=== PATIENT | female | born 1955 | race Two or more races ===

== ENCOUNTER 2018-11-09 22:41 | Emergency (ER) | payer SELFPAY ==
[~2018-11-09] VITALS: Ht 160 cm; Wt 104.3 kg
[2018-11-10 00:19] LABS: BASO # 0.1 x10^3/uL (0.0-0.2); BASO % 1 % (0-3); EOS # 0.4 x10^3/uL (0.0-0.7); EOS % 4 % (0-3); HEMATOCRIT 36.6 % (36.0-47.0); HEMOGLOBIN 12.6 g/dL (12.0-15.5); LYMPH # 3.1 x10^3/uL (1.0-4.8); LYMPH % 34 % (24-48); MEAN CORPUSCULAR HEMOGLOBIN 32 pg (25-35); MEAN CORPUSCULAR HGB CONC 34 g/dL (31-37); MEAN CORPUSCULAR VOLUME 93 fL (79-100); MONO # 0.8 x10^3/uL (0.0-1.1); MONO % 8 % (0-9); NEUT # 4.9 x10^3uL (1.8-7.7); NEUT % 53 % (31-73); PLATELET COUNT 241 x10^3/uL (140-400); RED BLOOD COUNT 3.93 x10^6/uL (3.50-5.40); RED CELL DISTRIBUTION WIDTH 12.9 % (11.5-14.5); WHITE BLOOD COUNT 9.2 x10^3/uL (4.0-11.0)
[2018-11-10 00:20] LABS: BILIRUBIN,URINE NEGATIVE (NEG); CLARITY,URINE CLEAR; COLOR,URINE YELLOW; NITRITE,URINE NEGATIVE (NEG); PH,URINE 7.5; PROTEIN,URINE NEGATIVE (NEG-TRACE); UROBILINOGEN,URINE 0.2 mg/dL (0.2 mg/dL)
[2018-11-10 00:29] LABS: BACTERIA,URINE 0 /HPF (0-FEW); RBC,URINE OCC /HPF (0-2); SQUAMOUS EPITHELIAL CELL,UR FEW /LPF; WBC,URINE OCC /HPF (0-4)
[2018-11-10 00:29] LABS: CALCIUM 9.1 mg/dL (8.5-10.1); POTASSIUM 3.4 mmol/L (3.5-5.1)
[2018-11-10] MEDS ORDERED: ONDANSETRON PF 4 MG/2 ML VIAL. IV ONE (00:30)
[2018-11-10] MEDS ORDERED: FAMOTIDINE 20 MG/2 ML VIAL IVP ONE (00:30)
[2018-11-10] MEDS ORDERED: IV NORMAL SALINE 1000ML BAG 1,000 ML IV ONE (00:30)
[2018-11-10] MEDS ORDERED: IOHEXOL 300 MG/ML 100ML VIAL. IV ONE (00:30)
[2018-11-10 00:33] LABS: PROTHROMBIN TIME PATIENT 13.6 SEC (11.7-14.0)
[2018-11-10 00:35] LABS: ALBUMIN 3.6 g/dL (3.4-5.0); TOTAL BILIRUBIN 0.3 mg/dL (0.2-1.0); TOTAL PROTEIN 7.3 g/dL (6.4-8.2)
[2018-11-10] MEDS ORDERED: CONTRAST GIVEN. MC PRN (00:45)
--- NOTE | 2018-11-10 01:10 | RAD ---
PQRS Compliance Statement: One or more of the following individualized dose reduction techniques were utilized for this examination: 1. Automated exposure control 2. Adjustment of the mA and/or kV according to patient size 3. Use of iterative reconstruction technique CT ABD PELV W/ IV CONTRST ONLY Clinical Indication: ABD PAIN; Comparison: CT abdomen and pelvis without contrast April or 10/02/2012. Technique: Helical CT imaging of the abdomen and pelvis is performed after 60 cc of Omnipaque 300 IV contrast. Oral contrast not given. Findings: Mild dependent atelectasis in the lung bases. Cardiac size normal. The liver, gallbladder, spleen, pancreas, adrenal glands, abdominal aorta, and kidneys are normal. Stomach not well distended accentuating wall thickness. No dilated small bowel. The appendix is normal. Scattered stool in the colon. No colon wall thickening. No abdominal adenopathy or free fluid. Urinary bladder is normal. Hysterectomy. No pelvic free fluid. Mild grade 1 anterolisthesis of L4 on L5. IMPRESSION: No acute abdominal or pelvic abnormality. Electronically signed by: Prateek Wong MD (11/10/2018 1:06 AM) [facility]
[2018-11-10] MEDS ORDERED: ONDA4TAB12 PO (01:19)
[2018-11-10] MEDS ORDERED: FAMO-63 PO (01:19)
[2018-11-10] MEDS ORDERED: HYOS0.1265 SL (01:19)
--- NOTE | 2018-11-10 01:20 | PHYS DOC ---
Past Medical History Past Medical History: No Pertinent History Alcohol Use: Occasionally Drug Use: None Adult General Chief Complaint Chief Complaint: ABDOMINAL PAIN HPI HPI Patient is a 63 year old [f__sex] who presents with [] Review of Systems Review of Systems Constitutional: Denies fever or chills [] Eyes: Denies change in visual acuity, redness, or eye pain [] HENT: Denies nasal congestion or sore throat [] Respiratory: Denies cough or shortness of breath [] Cardiovascular: No additional information not addressed in HPI [] GI: Denies abdominal pain, nausea, vomiting, bloody stools or diarrhea [] : Denies dysuria or hematuria [] Musculoskeletal: Denies back pain or joint pain [] Integument: Denies rash or skin lesions [] Neurologic: Denies headache, focal weakness or sensory changes [] Endocrine: Denies polyuria or polydipsia [] All other systems were reviewed and found to be within normal limits, except as documented in this note. Current Medications Current Medications Current Medications Medications (Trade) Dose Ordered Sig/Win Start Time Stop Time Status Last Admin Dose Admin Famotidine (Pepcid Vial) 20 mg 1X ONCE 11/10/18 00:30 11/10/18 00:31 DC 11/10/18 00:26 20 MG Info (CONTRAST GIVEN -- Rx MONITORING) 1 each PRN DAILY PRN 11/10/18 00:45 18 00:44 Iohexol (Omnipaque 300 Mg/ml) 75 ml 1X ONCE 11/10/18 00:30 11/10/18 00:31 DC 11/10/18 00:57 60 ML Ondansetron HCl (Zofran) 4 mg 1X ONCE 11/10/18 00:30 11/10/18 00:31 DC 11/10/18 00:25 4 MG Sodium Chloride 1,000 ml @ 1,000 mls/hr 1X ONCE 11/10/18 00:30 11/10/18 01:29 11/10/18 00:26 1,000 MLS/HR Allergies Allergies Allergies Coded Allergies Type Severity Reaction Last Updated Verified No Known Drug Allergies 11/09/18 No Physical Exam Physical Exam Constitutional: Well developed, well nourished, no acute distress, non-toxic appearance. [] HENT: Normocephalic, atraumatic, bilateral external ears normal, oropharynx moist, no oral exudates, nose normal. [] Eyes: PERRLA, EOMI, conjunctiva normal, no discharge. [] Neck: Normal range of motion, no tenderness, supple, no stridor. [] Cardiovascular:Heart rate regular rhythm, no murmur [] Lungs & Thorax: Bilateral breath sounds clear to auscultation [] Abdomen: Bowel sounds normal, soft, no tenderness, no masses, no pulsatile masses. [] Skin: Warm, dry, no erythema, no rash. [] Back: No tenderness, no CVA tenderness. [] Extremities: No tenderness, no cyanosis, no clubbing, ROM intact, no edema. [] Neurologic: Alert and oriented X 3, normal motor function, normal sensory function, no focal deficits noted. [] Psychologic: Affect normal, judgement normal, mood normal. [] Current Patient Data Vital Signs Vital Signs Date Time Temp Pulse Resp B/P (MAP) Pulse Ox O2 Delivery O2 Flow Rate FiO2 11/09/18 23:28 98.0 66 18 174/81 (112) 96 Room Air 98.0 Lab Values Laboratory Tests Test 11/09/18 23:18 11/09/18 23:36 11/10/18 00:16 Urine Collection Type Unknown Urine Color Yellow Urine Clarity Clear Urine pH 7.5 Urine Specific [place] 1.015 Urine Protein Negative mg/dL (NEG-TRACE) Urine Glucose (UA) Negative mg/dL (NEG) Urine Ketones (Stick) Negative mg/dL (NEG) Urine Blood Negative (NEG) Urine Nitrite Negative (NEG) Urine Bilirubin Negative (NEG) Urine Urobilinogen Dipstick 0.2 mg/dL (0.2 mg/dL) Urine Leukocyte Esterase Negative (NEG) Urine RBC Occ /HPF (0-2) Urine WBC Occ /HPF (0-4) Urine Squamous Epithelial Cells Few /LPF Urine Bacteria 0 /HPF (0-FEW) Urine Mucus Slight /LPF White Blood Count 9.2 x10^3/uL (4.0-11.0) Red Blood Count 3.93 x10^6/uL (3.50-5.40) Hemoglobin 12.6 g/dL (12.0-15.5) Hematocrit 36.6 % (36.0-47.0) Mean Corpuscular Volume 93 fL (79-100) Mean Corpuscular Hemoglobin 32 pg (25-35) Mean Corpuscular Hemoglobin Concent 34 g/dL (31-37) Red Cell Distribution Width 12.9 % (11.5-14.5) Platelet Count 241 x10^3/uL (140-400) Neutrophils (%) (Auto) 53 % (31-73) Lymphocytes (%) (Auto) 34 % (24-48) Monocytes (%) (Auto) 8 % (0-9) Eosinophils (%) (Auto) 4 % (0-3) H Basophils (%) (Auto) 1 % (0-3) Neutrophils # (Auto) 4.9 x10^3uL (1.8-7.7) Lymphocytes # (Auto) 3.1 x10^3/uL (1.0-4.8) Monocytes # (Auto) 0.8 x10^3/uL (0.0-1.1) Eosinophils # (Auto) 0.4 x10^3/uL (0.0-0.7) Basophils # (Auto) 0.1 x10^3/uL (0.0-0.2) Prothrombin Time 13.6 SEC (11.7-14.0) Prothrombin Time INR 1.1 (0.8-1.1) PTT 29 SEC (24-38) Sodium Level 140 mmol/L (136-145) Potassium Level 3.4 mmol/L (3.5-5.1) L Chloride Level 105 mmol/L (98-107) Carbon Dioxide Level 26 mmol/L (21-32) Anion Gap 9 (6-14) Blood Urea Nitrogen 10 mg/dL (7-20) Creatinine 1.0 mg/dL (0.6-1.0) Estimated GFR (Cockcroft-Gault) 56.0 BUN/Creatinine Ratio 10 (6-20) Glucose Level 81 mg/dL (70-99) Calcium Level 9.1 mg/dL (8.5-10.1) Total Bilirubin 0.3 mg/dL (0.2-1.0) Aspartate Amino Transferase (AST) 24 U/L (15-37) Alanine Aminotransferase (ALT) 32 U/L (14-59) Alkaline Phosphatase 92 U/L (46-116) Creatine Kinase 146 U/L (26-192) Creatine Kinase MB (Mass) 1.3 ng/mL (0.0-3.6) Creatine Kinase MB Relative Index 0.9 % (0-4) Troponin I Quantitative < 0.017 ng/mL (0.000-0.055) Total Protein 7.3 g/dL (6.4-8.2) Albumin 3.6 g/dL (3.4-5.0) Albumin/Globulin Ratio 1.0 (1.0-1.7) Lipase 190 U/L (73-393) Lactic Acid Level 0.5 mmol/L (0.4-2.0) Laboratory Tests 11/09/18 23:36 Laboratory Tests 11/09/18 23:36 EKG EKG @0021 NSR at 62bpm, NO ST elevation Radiology/Procedures Radiology/Procedures PROCEDURE: CT ABD PELV W/ IV CONTRST ONLY PQRS Compliance Statement: One or more of the following individualized dose reduction techniques were utilized for this examination: 1. Automated exposure control 2. Adjustment of the mA and/or kV according to patient size 3. Use of iterative reconstruction technique CT ABD PELV W/ IV CONTRST ONLY Clinical Indication: ABD PAIN; Comparison: CT abdomen and pelvis without contrast April or 10/02/2012. Technique: Helical CT imaging of the abdomen and pelvis is performed after 60 cc of Omnipaque 300 IV contrast. Oral contrast not given. Findings: Mild dependent atelectasis in the lung bases. Cardiac size normal. The liver, gallbladder, spleen, pancreas, adrenal glands, abdominal aorta, and kidneys are normal. Stomach not well distended accentuating wall thickness. No dilated small bowel. The appendix is normal. Scattered stool in the colon. No colon wall thickening. No abdominal adenopathy or free fluid. Urinary bladder is normal. Hysterectomy. No pelvic free fluid. Mild grade 1 anterolisthesis of L4 on L5. IMPRESSION: No acute abdominal or pelvic abnormality. Electronically signed by: Prateek Wong MD (11/10/2018 1:06 AM) [facility] Course & Med Decision Making Course & Med Decision Making Pertinent Labs and Imaging studies reviewed. (See chart for details) [] Dragon Disclaimer Dragon Disclaimer This electronic medical record was generated, in whole or in part, using a voice recognition dictation system. Departure Departure Impression: Primary Impression: Abdominal pain Disposition: 01 HOME, SELF-CARE Referrals: JAY JONES MD (PCP) KAUR FIERRO MD Patient Instructions: Abdominal Pain (Nonspecific) Scripts Famotidine (PEPCID) 20 Mg Tablet 20 MG PO BID, #20 TAB Prov: SP ALVA DO 11/10/18 Ondansetron (ONDANSETRON ODT) 4 Mg Tab.rapdis 1 TAB PO PRN Q6-8HRS for VOMITING, #16 TAB Prov: SP ALVA DO 11/10/18 Hyoscyamine Sulfate (LEVSIN-SL) 0.125 Mg Tab.subl 1-2 TAB SL PRN Q4HRS PRN for PAIN, #20 TAB 0 Refills Prov: SP ALVA DO 11/10/18 Problem Qualifiers Primary Impression: Abdominal pain Abdominal location: generalized Qualified Codes: R10.84 - Generalized abdominal pain SP ALVA DO Nov 10, 2018 01:20
[2018-11-10 01:30] VITALS: BP 149/65
[2018-11-10] MEDS ORDERED: fentaNYL PF VIAL 100 MCG/2 ML VIAL IV ONE (01:30)
[2018-11-10] MEDS ORDERED: IOHEXOL 300 MG/ML 100ML VIAL. ONE (06:21)
--- NOTE | 2018-11-10 07:02 | EKG ---
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
== END 2018-11-10 01:48 | disposition home or self-care (01) ==
LOC: ER 22:41
DX: R10.84 Generalized abdominal pain (principal); J98.11 Atelectasis; Z90.710 Acquired absence of both cervix and uterus
CPT/HCPCS: 36415; 74177; 80053; 81001; 82553; 83605; 83690; 84484; 85025; 85610; 85730; 93005; 96374; 96375; 99284; J2405; J3010; J3490; J7030; Q9967

== ENCOUNTER 2019-03-31 21:09 | Emergency (ER) | payer SELFPAY ==
[~2019-03-31] VITALS: Ht 162.6 cm; Wt 88.0 kg
[~2019-03-31 21:09] MED LIST: FAMO-63 PO; HYOS0.1265 SL; ONDA4TAB12 PO
[2019-03-31 21:51] LABS: BILIRUBIN,URINE NEGATIVE (NEG); CLARITY,URINE CLEAR; COLOR,URINE YELLOW; NITRITE,URINE NEGATIVE (NEG); PH,URINE 6.5; PROTEIN,URINE NEGATIVE (NEG-TRACE); UROBILINOGEN,URINE 0.2 mg/dL (0.2 mg/dL)
[2019-03-31 21:57] LABS: BACTERIA,URINE 0 /HPF (0-FEW); SQUAMOUS EPITHELIAL CELL,UR FEW /LPF
[2019-03-31 22:00] LABS: BASO # 0.1 x10^3/uL (0.0-0.2); BASO % 1 % (0-3); EOS # 0.3 x10^3/uL (0.0-0.7); EOS % 2 % (0-3); HEMATOCRIT 39.9 % (36.0-47.0); HEMOGLOBIN 13.3 g/dL (12.0-15.5); LYMPH # 2.2 x10^3/uL (1.0-4.8); LYMPH % 19 % (24-48); MEAN CORPUSCULAR HEMOGLOBIN 31 pg (25-35); MEAN CORPUSCULAR HGB CONC 33 g/dL (31-37); MEAN CORPUSCULAR VOLUME 93 fL (79-100); MONO # 0.9 x10^3/uL (0.0-1.1); MONO % 8 % (0-9); NEUT # 7.9 x10^3uL (1.8-7.7); NEUT % 70 % (31-73); PLATELET COUNT 268 x10^3/uL (140-400); RED CELL DISTRIBUTION WIDTH 13.5 % (11.5-14.5); WHITE BLOOD COUNT 11.3 x10^3/uL (4.0-11.0)
[2019-03-31] MEDS ORDERED: FAMOTIDINE 20 MG/2 ML VIAL IVP ONE (22:00)
[2019-03-31] MEDS ORDERED: IV NORMAL SALINE 1000ML BAG 1,000 ML IV ONE (22:00)
[2019-03-31] MEDS ORDERED: ONDANSETRON PF 4 MG/2 ML VIAL. IV ONE (22:00)
[2019-03-31] MEDS ORDERED: fentaNYL PF VIAL 100 MCG/2 ML VIAL IV ONE (22:00)
[2019-03-31 22:10] LABS: PROTHROMBIN TIME PATIENT 12.5 SEC (11.7-14.0)
[2019-03-31 22:11] LABS: CALCIUM 9.7 mg/dL (8.5-10.1); CREATININE 1.1 mg/dL (0.6-1.0); GFR 50.2; POTASSIUM 3.6 mmol/L (3.5-5.1)
[2019-03-31 22:16] LABS: ALBUMIN 3.8 g/dL (3.4-5.0); ALBUMIN/GLOBULIN RATIO 1.1 (1.0-1.7); MAGNESIUM 2.2 mg/dL (1.8-2.4); TOTAL BILIRUBIN 0.2 mg/dL (0.2-1.0); TOTAL PROTEIN 7.4 g/dL (6.4-8.2)
[2019-03-31] MEDS ORDERED: CONTRAST GIVEN. MC PRN (22:30)
[2019-03-31 22:45] VITALS: BP 152/70
--- NOTE | 2019-03-31 22:52 | PHYS DOC ---
Past Medical History Past Medical History: No Pertinent History Past Surgical History: , Tonsillectomy Additional Information: 10 ciggerttes per day Alcohol Use: Rarely Drug Use: None Adult General Chief Complaint Chief Complaint: GI PROBLEM HPI HPI Patient is a 63 year old [f__sex] who presents with [] Review of Systems Review of Systems Constitutional: Denies fever or chills [] Eyes: Denies change in visual acuity, redness, or eye pain [] HENT: Denies nasal congestion or sore throat [] Respiratory: Denies cough or shortness of breath [] Cardiovascular: No additional information not addressed in HPI [] GI: Denies abdominal pain, nausea, vomiting, bloody stools or diarrhea [] : Denies dysuria or hematuria [] Musculoskeletal: Denies back pain or joint pain [] Integument: Denies rash or skin lesions [] Neurologic: Denies headache, focal weakness or sensory changes [] Endocrine: Denies polyuria or polydipsia [] All other systems were reviewed and found to be within normal limits, except as documented in this note. Current Medications Current Medications Current Medications Medications (Trade) Dose Ordered Sig/Win Start Time Stop Time Status Last Admin Dose Admin Famotidine (Pepcid Vial) 20 mg 1X ONCE 03/31/19 22:00 03/31/19 22:01 DC 03/31/19 22:06 20 MG Fentanyl Citrate (Fentanyl 2ml Vial) 50 mcg 1X ONCE 03/31/19 22:00 03/31/19 22:01 DC 03/31/19 22:07 50 MCG Info (CONTRAST GIVEN -- Rx MONITORING) 1 each PRN DAILY PRN 03/31/19 22:30 04/02/19 22:29 Iohexol (Omnipaque 300 Mg/ml) 60 ml 1X ONCE 03/31/19 23:00 03/31/19 23:01 DC 03/31/19 22:31 60 ML Ondansetron HCl (Zofran) 4 mg 1X ONCE 03/31/19 22:00 03/31/19 22:01 DC 03/31/19 22:06 4 MG Sodium Chloride 1,000 ml @ 1,000 mls/hr 1X ONCE 03/31/19 22:00 03/31/19 22:59 DC 03/31/19 22:05 1,000 MLS/HR Allergies Allergies Allergies Coded Allergies Type Severity Reaction Last Updated Verified No Known Drug Allergies 11/09/18 No Physical Exam Physical Exam Constitutional: Well developed, well nourished, no acute distress, non-toxic appearance. [] HENT: Normocephalic, atraumatic, bilateral external ears normal, oropharynx moist, no oral exudates, nose normal. [] Eyes: PERRLA, EOMI, conjunctiva normal, no discharge. [] Neck: Normal range of motion, no tenderness, supple, no stridor. [] Cardiovascular:Heart rate regular rhythm, no murmur [] Lungs & Thorax: Bilateral breath sounds clear to auscultation [] Abdomen: Bowel sounds normal, soft, no tenderness, no masses, no pulsatile masses. [] Skin: Warm, dry, no erythema, no rash. [] Back: No tenderness, no CVA tenderness. [] Extremities: No tenderness, no cyanosis, no clubbing, ROM intact, no edema. [] Neurologic: Alert and oriented X 3, normal motor function, normal sensory function, no focal deficits noted. [] Psychologic: Affect normal, judgement normal, mood normal. [] Current Patient Data Vital Signs Vital Signs Date Time Temp Pulse Resp B/P (MAP) Pulse Ox O2 Delivery O2 Flow Rate FiO2 03/31/19 22:07 22 93 Room Air 03/31/19 21: 98.7 79 142/65 (90) 98.7 Lab Values Laboratory Tests Test 03/31/19 21:10 03/31/19 21:50 Urine Collection Type Unknown Urine Color Yellow Urine Clarity Clear Urine pH 6.5 Urine Specific [place] 1.025 Urine Protein Negative mg/dL (NEG-TRACE) Urine Glucose (UA) Negative mg/dL (NEG) Urine Ketones (Stick) Negative mg/dL (NEG) Urine Blood Small (NEG) Urine Nitrite Negative (NEG) Urine Bilirubin Negative (NEG) Urine Urobilinogen Dipstick 0.2 mg/dL (0.2 mg/dL) Urine Leukocyte Esterase Small (NEG) Urine RBC 1-2 /HPF (0-2) Urine WBC 1-4 /HPF (0-4) Urine Squamous Epithelial Cells Few /LPF Urine Bacteria 0 /HPF (0-FEW) Urine Mucus Slight /LPF White Blood Count 11.3 x10^3/uL (4.0-11.0) H Red Blood Count 4.30 x10^6/uL (3.50-5.40) Hemoglobin 13.3 g/dL (12.0-15.5) Hematocrit 39.9 % (36.0-47.0) Mean Corpuscular Volume 93 fL (79-100) Mean Corpuscular Hemoglobin 31 pg (25-35) Mean Corpuscular Hemoglobin Concent 33 g/dL (31-37) Red Cell Distribution Width 13.5 % (11.5-14.5) Platelet Count 268 x10^3/uL (140-400) Neutrophils (%) (Auto) 70 % (31-73) Lymphocytes (%) (Auto) 19 % (24-48) L Monocytes (%) (Auto) 8 % (0-9) Eosinophils (%) (Auto) 2 % (0-3) Basophils (%) (Auto) 1 % (0-3) Neutrophils # (Auto) 7.9 x10^3uL (1.8-7.7) H Lymphocytes # (Auto) 2.2 x10^3/uL (1.0-4.8) Monocytes # (Auto) 0.9 x10^3/uL (0.0-1.1) Eosinophils # (Auto) 0.3 x10^3/uL (0.0-0.7) Basophils # (Auto) 0.1 x10^3/uL (0.0-0.2) Prothrombin Time 12.5 SEC (11.7-14.0) Prothrombin Time INR 1.0 (0.8-1.1) PTT 28 SEC (24-38) Sodium Level 140 mmol/L (136-145) Potassium Level 3.6 mmol/L (3.5-5.1) Chloride Level 100 mmol/L (98-107) Carbon Dioxide Level 30 mmol/L (21-32) Anion Gap 10 (6-14) Blood Urea Nitrogen 17 mg/dL (7-20) Creatinine 1.1 mg/dL (0.6-1.0) H Estimated GFR (Cockcroft-Gault) 50.2 BUN/Creatinine Ratio 15 (6-20) Glucose Level 121 mg/dL (70-99) H Lactic Acid Level 1.3 mmol/L (0.4-2.0) Calcium Level 9.7 mg/dL (8.5-10.1) Magnesium Level 2.2 mg/dL (1.8-2.4) Total Bilirubin 0.2 mg/dL (0.2-1.0) Aspartate Amino Transferase (AST) 15 U/L (15-37) Alanine Aminotransferase (ALT) 24 U/L (14-59) Alkaline Phosphatase 100 U/L (46-116) Troponin I Quantitative < 0.017 ng/mL (0.000-0.055) Total Protein 7.4 g/dL (6.4-8.2) Albumin 3.8 g/dL (3.4-5.0) Albumin/Globulin Ratio 1.1 (1.0-1.7) Lipase 167 U/L (73-393) Laboratory Tests 03/31/19 21:50 Laboratory Tests 03/31/19 21:50 EKG EKG @2148 NSR at 72bpm, baseline artifact noted, V2 with significant wandering artifact, NO ST elevation Radiology/Procedures Radiology/Procedures PROCEDURE: CT CHEST ABD PELVIS W/CONTRAST EXAM: Chest, abdomen and pelvis CT with intravenous contrast. HISTORY: Epigastric pain. TECHNIQUE: Computed tomographic images of the chest, abdomen and pelvis were obtained following the administration of 60 cc Omnipaque 300 intravenous contrast. Multiplanar reformatting was performed. *One or more of the following individualized dose reduction techniques were utilized for this examination: 1. Automated exposure control. 2. Adjustment of the mA and/or kV according to patient size. 3. Use of iterative reconstruction technique. COMPARISON: 12/15/2011. FINDINGS: Chest: The heart is normal in size. The aorta is normal in caliber. There is a standard aortic arch branching pattern. There are nonspecific mediastinal and hilar lymph nodes. These are not pathologically enlarged. There is no pneumothorax or pleural effusion. There is posterior dependent and basilar atelectasis. There is no consolidation. There is no suspicious pulmonary nodule. There is no suspicious osseous lesion. Abdomen and pelvis: No hepatic lesion is seen. The gallbladder, pancreas, adrenal glands and kidneys are unremarkable. The appendix is normal in appearance. No abnormally thickened or dilated loop of bowel seen. There is no retroperitoneal or mesenteric lymphadenopathy. There is mild pyloric wall thickening wall thickening. There is no suspicious osseous lesion. IMPRESSION: 1. Mild nonspecific pyloric wall thickening. 2. Otherwise, relatively unremarkable abdomen and pelvis and chest CT. Electronically signed by: Steffanie Powell MD (03/31/2019 10:47 PM) [facility] Course & Med Decision Making Course & Med Decision Making Pertinent Labs and Imaging studies reviewed. (See chart for details) [] Dragon Disclaimer Dragon Disclaimer This electronic medical record was generated, in whole or in part, using a voice recognition dictation system. Departure Departure Impression: Primary Impression: Abdominal pain Additional Impressions: Nausea vomiting and diarrhea Nausea & vomiting Disposition: 01 HOME, SELF-CARE Condition: STABLE Referrals: JAY JONES MD (PCP) Patient Instructions: Abdominal Pain (Nonspecific), Nausea and Vomiting, [id number] Scripts Hyoscyamine Sulfate (LEVSIN-SL) 0.125 Mg Tab.subl 1-2 TAB SL PRN Q4HRS PRN for PAIN, #30 TAB Prov: SP ALVA DO 03/31/19 Famotidine (PEPCID) 20 Mg Tablet 20 MG PO BID, #30 TAB Prov: SP ALVA DO 03/31/19 Ondansetron (ONDANSETRON ODT) 4 Mg Tab.rapdis 1 TAB PO PRN Q6-8HRS PRN for NAUSEA, #16 TAB Prov: SP ALVA DO 03/31/19 Problem Qualifiers Primary Impression: Abdominal pain Abdominal location: epigastric Qualified Codes: R10.13 - Epigastric pain Additional Impressions: Nausea & vomiting Vomiting type: unspecified Vomiting Intractability: non-intractable Qualified Codes: R11.2 - Nausea with vomiting, unspecified SP ALVA DO March 31, 2019 22:52
[2019-03-31] MEDS ORDERED: IOHEXOL 300 MG/ML 100ML VIAL. IV ONE (23:00)
[2019-03-31] MEDS ORDERED: FAMO-63 PO (23:09)
[2019-03-31] MEDS ORDERED: HYOS0.1265 SL (23:09)
[2019-03-31] MEDS ORDERED: ONDA4TAB12 PO (23:09)
--- NOTE | 2019-04-01 07:02 | EKG ---
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
== END 2019-03-31 23:15 | disposition home or self-care (01) ==
LOC: ER 21:09
DX: R10.13 Epigastric pain (principal); R11.2 Nausea with vomiting, unspecified; F17.210 Nicotine dependence, cigarettes, uncomplicated; Z98.890 Other specified postprocedural states; Z90.89 Acquired absence of other organs
CPT/HCPCS: 36415; 71260; 74177; 80053; 81001; 83605; 83690; 83735; 84484; 85025; 85610; 85730; 87086; 93005; 96361; 96374; 96375; 99285; J2405; J3010; J3490; J7030; Q9967

== ENCOUNTER 2019-10-03 07:23 | Emergency (ER) | payer SELFPAY ==
[~2019-10-03] VITALS: Ht 157.5 cm; Wt 86.2 kg
[2019-10-03 07:35] VITALS: BP 159/72
--- NOTE | 2019-10-03 07:47 | PHYS DOC ---
Past Medical History Past Medical History: No Pertinent History Past Surgical History: , Tonsillectomy Smoking: Cigarettes Alcohol Use: Rarely Drug Use: None Adult General Chief Complaint Chief Complaint: COUGH HPI HPI Patient is a 63-year-old female who presents to the emergency department for evaluation. She states for the past 10 days, she has had a cough productive of greenish sputum, as well as a sore throat and nasal congestion. She has not had any fever or otalgia. She has not had any voice changes. Swallowing and coughing hurts her throat. There are no alleviating factors to her symptoms otherwise. She denies any chest pain or pleuritic pain. Review of Systems Review of Systems Constitutional: Denies fever or chills [] Eyes: Denies change in visual acuity, redness, or eye pain [] HENT: Reports nasal congestion and sore throat [] Respiratory: Denies pleuritic pain or shortness of breath . Reports cough.[] Cardiovascular: The patient denies any shortness of breath, chest pain, palpitations, or orthopnea [] GI: Denies abdominal pain, nausea, vomiting, bloody stools or diarrhea [] : Denies dysuria or hematuria [] Musculoskeletal: Denies back pain or joint pain [] Integument: Denies rash or skin lesions [] Neurologic: Denies headache, focal weakness or sensory changes [] Endocrine: Denies polyuria or polydipsia [] All other systems were reviewed and found to be within normal limits, except as documented in this note. Allergies Allergies Allergies Coded Allergies Type Severity Reaction Last Updated Verified No Known Drug Allergies 11/09/18 No Physical Exam Physical Exam PHYSICAL EXAM: CONSTITUTIONAL: Well developed, well nourished HEAD: normocephalic, atraumatic EENT: PERRL, EOMI. Conjunctivae normal color, sclerae non-icteric; moist mucous membranes. The oropharynx is mildly erythematous. There is no exudate or edema. The uvula is midline. NECK: Supple, no meningismus. There is mild soft tissue tenderness diffusely the anterior neck, without any definite submandibular lymphadenopathy. There is no stridor. Voice is normal. LUNGS: Lungs CTA, breathing even and unlabored. Normal air movement. HEART: Regular rate and rhythm, no murmur CHEST: No deformity; non-tender ABDOMEN: The abdomen is soft, and non-tender, no masses or bruits. EXTREM: Normal ROM; no deformity, no calf tenderness. Normal pulses palpable in all extremities. There is no pedal edema. SKIN: No rash; no diaphoresis NEURO: Alert; normal speech and cognition; CN's grossly intact; strength grossly intact without focal deficit. BACK: No CVA TTP. Current Patient Data Vital Signs Vital Signs Date Time Temp Pulse Resp B/P (MAP) Pulse Ox O2 Delivery O2 Flow Rate FiO2 10/03/19 07:35 98.0 80 18 159/72 (101) 96 Room Air 98.0 EKG EKG [] Radiology/Procedures Radiology/Procedures PROCEDURE: CHEST PA & LATERAL PA and lateral chest. HISTORY: Cough PA and lateral views were taken of the chest. Heart is normal in size. There is no pleural effusion. A confluent pneumonia is not identified. There is no effusion. IMPRESSION: 1. No confluent infiltrates. [] PROCEDURE: NECK SOFT TISSUE AP and lateral soft tissue neck. HISTORY: Neck pain AP and lateral soft tissue views were taken of the neck. The epiglottis is not enlarged. There is no retropharyngeal soft tissue swelling. There is mild degenerative spurring spurring in the cervical spine at C5-6 and C6-7. Heart is enlarged. IMPRESSION: 1. No abnormal soft tissue swelling noted in the neck. 2. Degenerative change in the cervical spine. Course & Med Decision Making Course & Med Decision Making Pertinent Labs and Imaging studies reviewed. (See chart for details) []8:50 AM:Patient remains stable. I discussed test results, the need for close follow-up, and return precautions. Dragon Disclaimer Dragon Disclaimer This electronic medical record was generated, in whole or in part, using a voice recognition dictation system. Departure Departure Impression: Primary Impression: Cough Additional Impression: Acute pharyngitis Disposition: 01 HOME, SELF-CARE Condition: STABLE Patient Instructions: Cough, Adult, Viral and Bacterial Pharyngitis Scripts Benzonatate (TESSALON PERLE) 100 Mg Capsule 200 MG PO TID PRN for COUGH, #20 CAP Prov: YNES BENITEZ MD 10/03/19 Problem Qualifiers YNES BENITEZ MD Oct 03, 2019 07:47
--- NOTE | 2019-10-03 08:35 | RAD ---
PA and lateral chest. HISTORY: Cough PA and lateral views were taken of the chest. Heart is normal in size. There is no pleural effusion. A confluent pneumonia is not identified. There is no effusion. IMPRESSION: 1. No confluent infiltrates. Electronically signed by: Jay Jay Lee MD (10/03/2019 8:32 AM) [id number]
--- NOTE | 2019-10-03 08:37 | RAD ---
AP and lateral soft tissue neck. HISTORY: Neck pain AP and lateral soft tissue views were taken of the neck. The epiglottis is not enlarged. There is no retropharyngeal soft tissue swelling. There is mild degenerative spurring spurring in the cervical spine at C5-6 and C6-7. Heart is enlarged. IMPRESSION: 1. No abnormal soft tissue swelling noted in the neck. 2. Degenerative change in the cervical spine. Electronically signed by: Jay Jay Lee MD (10/03/2019 8:34 AM) [id number]
[2019-10-03] MEDS ORDERED: BENZ100C PO (08:51)
== END 2019-10-03 08:54 | disposition home or self-care (01) ==
LOC: ER 07:23
DX: J02.9 Acute pharyngitis, unspecified (principal); F17.210 Nicotine dependence, cigarettes, uncomplicated
CPT/HCPCS: 70360; 71046; 87070; 87880; 99285-25